=== PATIENT | female | born 1960 | race Hispanic/Latino ===

== ENCOUNTER 2016-08-20 15:00 | Emergency (ER) | payer BC ==
[2016-08-20 16:42] LABS: Basophils % (Auto) 0.2 % (0.0-1.8); Eosinophils % (Auto) 0.4 % (0.0-4.3); Hematocrit 40.4 % (30.3-42.9); Hemoglobin 13.5 gm/dl (10.1-14.3); Mean Corpuscular HGB Conc 34 % (30-34); Mean Corpuscular Hemoglobin 33 pg (28-32); Mean Corpuscular Volume 99 fl (79-97); Platelet Count 197 K/mm3 (140-440); Red Cell Distribution Width 12.5 % (13.2-15.2); White Blood Count 12.7 K/mm3 (4.5-11.0)
[2016-08-20 16:47] LABS: Bilirubin,Urine Negative (Negative); Blood,Urine Large (Negative); Ketones,Urine Negative (Negative); Protein,Urine >500 mg/dL (Negative)
[2016-08-20 16:48] LABS: Leukocyte Esterase,Urine Moderate (Negative); Nitrite,Urine Positive (Negative); RBC,Urine > 182.0 /HPF (0.0-6.0); Urobilinogen,Urine < 2.0 mg/dL (<2.0)
--- NOTE | 2016-08-20 16:52 | Emergency Department Report ---
ED Female HPI - General Chief complaint: Urogenital-Female Stated complaint: UTI Time Seen by Provider: 08/20/16 16:14 Source: patient Mode of arrival: Ambulatory Limitations: No Limitations - History of Present Illness Initial comments: 56-year-old female past medical history hypothyroidism presents with complaint of mild dysuria and slightly bloody urine since this afternoon. Patient states she has had episodes of cystitis which she presented similarly to this in the past. Patient denies any fevers chills no nausea no vomiting denies any flank pain. Patient is awake alert and oriented 3 not in acute distress. She is accompanied by her . Patient states she has had increased urinary frequency since late last night MD Complaint: dysuria Onset/Timin -: hour(s) Location: suprapubic Radiation: non-radiating Severity: mild Severity scale (0 -10): 3 Quality: burning Worsens with: urination Are you Now?: No Associated Symptoms: denies other symptoms - Related Data Sexually active: Yes Home Medications Medication Instructions Recorded Confirmed Last Taken Fluticasone [Flonase] 1 spray NS QDAY 08/20/16 08/20/16 08/19/16 09:00 Levothyroxine Sodium [Synthroid] 175 mcg PO QDAY 08/20/16 08/20/16 08/19/16 08: 00 Previous Rx's Medication Instructions Recorded Last Taken Type Ibuprofen [Motrin] 400 mg PO Q8H PRN #20 tablet 08/20/16 Unknown Rx Nitrofurantoin [place]/M-Cryst 100 mg PO Q12HR #14 capsule 08/20/16 Unknown Rx [Macrobid CAP] Sodium Polystyrene Sulfonate 15 gm PO QDAY #7 powd.pack 08/20/16 Unknown Rx [Kalexate] Allergies Allergy/AdvReac Type Severity Reaction Status Date / Time tetanus toxoid, adsorbed Allergy Unknown Verified 08/20/16 15:29 ED Review of Systems ROS: Stated complaint: UTI Other details as noted in HPI Constitutional: denies: chills, fever Eyes: denies: eye pain, eye discharge, vision change ENT: denies: ear pain, throat pain Respiratory: denies: cough, shortness of breath, wheezing Cardiovascular: denies: chest pain, palpitations Endocrine: no symptoms reported Gastrointestinal: denies: abdominal pain, nausea, diarrhea Genitourinary: urgency, dysuria, frequency. denies: discharge Musculoskeletal: denies: back pain, joint swelling, arthralgia Skin: denies: rash, lesions Neurological: denies: headache, weakness, paresthesias Psychiatric: denies: anxiety, depression Hematological/Lymphatic: denies: easy bleeding, easy bruising ED Past Medical Hx - Past Medical History Additional medical history: HYPOTHYROID. "INNOCENT HEART MURMUR". SEASONAL ALLERGIES - Surgical History Past Surgical History?: No - Social History Smoking Status: Never Smoker Substance Use Type: Alcohol - Medications Home Medications: Home Medications Medication Instructions Recorded Confirmed Last Taken Type Fluticasone [Flonase] 1 spray NS QDAY 08/20/16 08/20/16 08/19/16 09:00 History Ibuprofen [Motrin] 400 mg PO Q8H PRN #20 tablet 08/20/16 Unknown Rx Levothyroxine Sodium [Synthroid] 175 mcg PO QDAY 08/20/16 08/20/16 08/19/16 08: 00 History Nitrofurantoin [place]/M-Cryst 100 mg PO Q12HR #14 capsule 08/20/16 Unknown Rx [Macrobid CAP] Sodium Polystyrene Sulfonate 15 gm PO QDAY #7 powd.pack 08/20/16 Unknown Rx [Kalexate] ED Physical Exam - General Limitations: No Limitations General appearance: alert, in no apparent distress - Head Head exam: Present: atraumatic, normocephalic - Eye Eye exam: Present: normal appearance - ENT ENT exam: Present: mucous membranes moist - Neck Neck exam: Present: normal inspection - Respiratory Respiratory exam: Present: normal lung sounds bilaterally. Absent: respiratory distress - Cardiovascular Cardiovascular Exam: Present: regular rate, normal rhythm. Absent: systolic murmur, diastolic murmur, rubs, gallop - GI/Abdominal GI/Abdominal exam: Present: soft, tenderness (very mild suprapubic tenderness), normal bowel sounds - Extremities Exam Extremities exam: Present: normal inspection - Back Exam Back exam: Present: normal inspection - Neurological Exam Neurological exam: Present: alert, oriented X3 - Psychiatric Psychiatric exam: Present: normal affect, normal mood - Skin Skin exam: Present: warm, dry, intact, normal color. Absent: rash ED Course Vital Signs 08/20/16 08/20/16 15:30 18:36 Temperature 98.4 F Pulse Rate 103 H 90 Respiratory 17 18 Rate Blood Pressure 131/69 Blood Pressure 132/74 [Left] O2 Sat by Pulse 100 100 Oximetry ED Medical Decision Making - Lab Data Result diagrams: 08/20/16 16:29 08/20/16 16:29 - Medical Decision Making A/P: Hemorrhagic cystitis 1-will treat patient empirically and we'll start with one dose of IV ceftriaxone , 1 L normal saline 2-Macrobid twice a day 7 days Motrin when necessary 3-advised patient to return to the ED if she experiences fevers chills nausea vomiting. Patient has no flank pain on clinical exam no clinical signs of pyelonephritis is able tolerate by mouth and has no fever. 4-urine culture sent 5- patient had slightly elevated potassium however I was notified by the labor contractor earlier today that there was an issue with the chemistry panel device and some labs had been slightly hemolyzed. Patient given 1 dose of Kayexalate, advised her to remain well-hydrated. Critical care attestation.: If time is entered above; I have spent that time in minutes in the direct care of this critically ill patient, excluding procedure time. ED Disposition Clinical Impression: Hemorrhagic cystitis UTI (urinary tract infection) Qualifiers: Urinary tract infection type: acute cystitis Hematuria presence: without hematuria Qualified Code(s): N30.00 - Acute cystitis without hematuria Disposition: DISCHARGED TO HOME OR SELFCARE Is pt being admited?: No Does the pt Need Aspirin: No Condition: Stable Instructions: Urinary Tract Infection in Women (ED) Prescriptions: Ibuprofen [Motrin] 400 mg PO Q8H PRN #20 tablet PRN Reason: Pain Nitrofurantoin [place]/M-Cryst [Macrobid CAP] 100 mg PO Q12HR #14 capsule Sodium Polystyrene Sulfonate [Kalexate] 15 gm PO QDAY #7 powd.pack Referrals: DEBBI DIAZ MD [Staff Physician] - 3-5 Days Forms: Accompanied Note, Work/School Release Form(ED) Time of Disposition: 18:25
[2016-08-20 17:05] LABS: Anion Gap 19 mmol/L; BUN/Creatinine Ratio 28.75; Blood Urea Nitrogen 23 mg/dL (7-17); Calcium 9.5 mg/dL (8.4-10.2); Carbon Dioxide 27 mmol/L (22-30); Chloride 101.8 mmol/L (98-107); Creatine Kinase 91 units/L (30-135); Glucose 105 mg/dL (65-100); Potassium 5.2 mmol/L (3.6-5.0); Sodium 143 mmol/L (137-145)
[2016-08-20] MEDS ORDERED: ROCEPHIN/NS 1 GM/50 ML 1 GM/50 ML BAG IV ONE (17:12)
[2016-08-20] MEDS ORDERED: KIONEX PO ONE (17:15)
[2016-08-20] MEDS ORDERED: NACL 0.9% 1000 ML 1,000 ML IV ONE (17:16)
[2016-08-20 18:37] VITALS: BP 132/74
== END 2016-08-20 18:36 | disposition home or self-care (01) ==
LOC: ED 15:00
DX: N30.00 Acute cystitis without hematuria (principal)
CPT/HCPCS: 36415; 80048; 81001; 82550; 83735; 85025; 87086; 96365; 99283; J0696; J7030